=== PATIENT | female | born 1935 | race Caucasian/White ===

== ENCOUNTER 2018-07-14 06:24 | Day surgery (SDC) | payer OTHER ==
[2018-07-08 10:07] VITALS: BMI 26.5
[2018-07-14] MEDS ORDERED: LIDOCAINE HCL 2% (20ML MULTI-DOSE VIAL) NR ONE (07:14)
[2018-07-14] MEDS ORDERED: BUPIVACAINE HCL 0.25% 125 MG/50 ML VIAL ONE (07:29)
[2018-07-14] MEDS ORDERED: MIDAZOLAM HCL 2 MG/2 ML SINGLE DOSE VIAL ONE (07:40)
[2018-07-14] MEDS ORDERED: ROPIVACAINE HCL 0.5% 30ML VIAL ONE (07:40)
[2018-07-14] MEDS ORDERED: DEXAMETHASONE SOD PHOSPHATE/PF 10 MG/ML SDV ONE (07:40)
[2018-07-14] MEDS ORDERED: PROPOFOL 20 ML ONE (08:17)
[2018-07-14] MEDS ORDERED: SUCCINYLCHOLINE CHLORIDE 200 MG/10 ML VIAL ONE (08:19)
[2018-07-14] MEDS ORDERED: ceFAZolin SODIUM 1 GM VIAL ONE (08:21)
[2018-07-14 10:10] VITALS: TEMP 97.4
[2018-07-14 10:45] VITALS: BP 143/65
[2018-07-14 10:49] VITALS: PULSE 68
[2018-07-14] MEDS ORDERED: oxyCODONE HCL 5 MG TABLET PO PRN (11:06)
[2018-07-14] MEDS ORDERED: ONDANSETRON 4 MG/2 ML VIAL IVPUSH PRN (11:06)
[2018-07-14] MEDS ORDERED: LACTATED RINGERS SOLUTION 1,000 ML IV SCH (11:15)
--- NOTE | 2018-07-15 10:21 | OP ---
DATE OF OPERATION: 07/14/2018 PREOPERATIVE DIAGNOSIS: Status post left distal radius open reduction and internal fixation with current likely flexor digitorum profundus to index finger laceration. POSTOPERATIVE DIAGNOSES: 1. Left wrist flexor tenosynovitis. 2. Left wrist distal radius bony prominence. 3. Left flexor digitorum profundus to index finger partial rupture and fraying of other tendons. OPERATIVE PROCEDURES: 1. Left wrist radial flexor tenosynovectomy with excision of bony prominence in distal radius. 2. Debridement/partial excision of flexor digitorum profundus to index finger and debridement of other tendons to the flexor tendon sheath. SURGEON: Frederick Morris MD PUPPET MAKER: ADALBERTO Bond ANESTHESIA: Regional. COMPLICATIONS: None. ESTIMATED BLOOD LOSS: Minimal. INDICATION FOR PROCEDURE: The patient is an 82-year-old female who is status post distal radius ORIF in the past. She had collapse of the fracture and subsequent removal of hardware, and prior to the surgery, she developed an inability to flex the distal interphalangeal joint to the index finger. She was diagnosed with likely flexor tendon rupture and was indicated for operative treatment. Risks, benefits, and alternatives were discussed with the patient at length, and proper informed consent was obtained. PROCEDURE: After proper identification of patient and correct operative site, patient was brought to the operating room and placed supine on the operative table. All prominences were well padded. Regional anesthesia was given. Left upper extremity was prepped and draped in usual sterile fashion. A well-padded tourniquet was placed as well as a sterile prep. Esmarch bandage to exsanguinate the left upper extremity. Tourniquet was inflated to 250 mmHg. The patient's prior incision was used including both her carpal tunnel incision and her distal radius incision. Also of note, the patient stated that since the initial injury she had numbness of some of the fingers. The incisions were taken sharply through the skin, with blunt and sharp dissection through the subcutaneous tissues. Median nerve was identified and protected throughout the procedure. It was found to have some compression beneath the scar tissue of the prior surgical incision. It was decompressed in its entirety. The flexor tendon compartment was found to have significant flexor tenosynovitis with abundant synovial tissue. A complete tenosynovectomy of the wrist was performed. Significant fraying of the FDP to the index finger was noted. Approximately 50% of the flexor tendon remained, and the rest was damaged. This was debrided to healthy tissue, and it was determined at this point that no repair was necessary as about 50% of the tendon girth was left and this was functioning adequately. The FDS was found to be adherent as well, and this was freed with a tenolysis. Once this was completed, pulling on the tendons allowed full motion of the finger. Mild fraying of other tendons was noted, but all of the tendons were accounted for and intact. The base of the flexor compartment and carpal canal was evaluated, and there was a small rent in the soft tissue where a moderate-size bony spicule was noted. This was removed for a smooth surface. There were no other prominent areas. Mild metallosis was seen in the soft tissue here. This was debrided. Wound was irrigated. Hemostasis was achieved with bipolar electrocautery, and the wound was repaired in layers using 4-0 Vicryl and 5-0 nylon suture. Sterile dressings were applied. Patient was reversed from anesthesia and brought to Recovery in stable condition. Robin Cohen, the public health assistant, was integral throughout the procedure. Procedure could not have been performed without a skilled operative public health assistant. Cornelius [id number]
--- NOTE | 2018-07-16 15:37 | PATH ---
Surgical Pathology Report Patient Name: MATTHEW REINA [facility]. Rec. #: [id number] /Age/Gender: 1935 (Age: 82) / F Account: [id number] Location: [facility] Taken: 07/14/2018 Received: 07/14/2018 Reported: 07/16/2018 Physicians: Frederick Morris M.D. Specimen(s) Received FLEXOR TENOSYNOVIUM LEFT WRIST Clinical History Spontaneous rupture of flexor tendon left forearm Final Diagnosis FLEXOR OF TENOSYNOVIUM, LEFT WRIST, EXCISION: FIBROSYNOVIAL TISSUE WITH FIBROSIS AND DEGENERATIVE CHANGE. Electronically Signed Dulce Maria Huang M.D. Gross Description Received in formalin labeled "flexor tenosynovium left wrist," is a 2.4 x 2.0 x 0.3 cm aggregate of dudley osborn portions of soft tissue, consistent with tenosynovium. The specimen is submitted in toto in one cassette. 07/15/201807/15/2018
== END 2018-07-14 10:42 | disposition home or self-care (01) ==
LOC: FASU 06:24
PROVIDERS: ATTEND Orthopaedic Surgery Hand Surgery
PROC: 0LB60ZZ Excision of Left Lower Arm and Wrist Tendon, Open Approach (ICD-10-PCS; 2018-07-14)
PROC: 0LB60ZZ Excision of Left Lower Arm and Wrist Tendon, Open Approach (ICD-10-PCS; principal; 2018-07-14 08:27)
DX: M66.332 Spontaneous rupture of flexor tendons, left forearm (principal); M65.88 Other synovitis and tenosynovitis, other site; M89.8X8 Other specified disorders of bone, other site
CPT/HCPCS: 88304-TC

== ENCOUNTER 2019-09-08 12:56 | Inpatient (IN) | payer OTHER ==
--- NOTE | 2019-09-08 13:26 | PDOC ---
History of Present Illness - General Chief Complaint: Blood Pressure Problem Stated Complaint: BLOOD PRESSURE PROBLEM Time Seen by Provider: 09/08/19 13:07 Past History - Past Medical History Allergies/Adverse Reactions: Allergies Allergy/AdvReac Type Severity Reaction Status Date / Time morphine sulfate Allergy Verified 07/08/18 09:56 [From Duramorph (PF)] psyllium husk Allergy Verified 07/08/18 09:56 [From Metamucil] psyllium seed Allergy Verified 07/08/18 09:56 [From Metamucil] levofloxacin [From Levaquin] AdvReac Verified 07/08/18 09:56 Home Medications: Ambulatory Orders Amlodipine Besylate [Norvasc -] 10 mg PO DAILY 04/16/12 Levothyroxine [Synthroid -] 100 mcg PO DAILY 04/16/12 Rosuvastatin Calcium [Crestor] 20 mg PO HS 04/16/12 Fenofibric Acid [Trilipix -] 45 mg PO HS 04/19/12 [place]-3 Acid Ethyl Esters [Lovaza -] 1,000 mg PO DAILY 04/19/12 Zolpidem Tartrate 1 tab PO PRN PRN 05/12/14 Clopidogrel Bisulfate [Plavix -] 75 mg PO DAILY #0 tablet 05/15/14 Oxycodone HCl 10 mg PO PRN PRN 05/15/14 Furosemide [Lasix -] 20 mg PO ASDIR 05/02/16 Labetalol HCl [Normodyne -] 300 mg PO DAILY 05/02/16 Pantoprazole Sodium 40 mg PO DAILY 05/02/16 Gabapentin 600 mg PO TID 07/08/18 Anemia: Yes Asthma: No Cancer: No Cardiac Disorders: Yes (ASHD) CVA: No COPD: Yes CHF: No Dementia: No Diabetes: No GI Disorders: Yes (ESOPHAGEAL DYSMOTILITY,GERD,HIATAL HERNIA,COLON POLYPS, HEMORRHOIDS) Disorders: No HTN: Yes Hypercholesterolemia: Yes Liver Disease: No Seizures: No Thyroid Disease: Yes (HYPOTHYROID) - Surgical History Abdominal Surgery: No Appendectomy: No Cardiac Surgery: No Cholecystectomy: No Lung Surgery: No Neurologic Surgery: No Orthopedic Surgery: Yes (abhi TKR) - Psycho Social/Smoking Cessation Hx Smoking History: Unknown if ever smoked Have you smoked in the past 12 months: No Information on smoking cessation initiated: No Hx Alcohol Use: No Drug/Substance Use Hx: No Substance Use Type: None Hx Substance Use Treatment: No *Physical Exam - Vital Signs Last Vital Signs Temp Pulse Resp BP Pulse Ox 97.7 F 60 18 118/64 100 09/08/19 13:00 09/08/19 13:00 09/08/19 13:00 09/08/19 13:00 09/08/19 13:00 ED Treatment Course - LABORATORY CBC & Chemistry Diagram: 09/08/19 13:50 09/08/19 13:50 Medical Decision Making - Medical Decision Making 09/08/19 14:11 HPI: 84yo F hx HTN, HLD, COPD, diverticulosis and colon polyps, hx anemia (1x in 2018 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 Eating less but drinking water normally, last ate 5 days ago, BMs normal. Pt states the of her best friend brought this all about. Endorses sadness and difficulty sleeping, improved by Ambien. Denies depression, SI, HI, AVH. Pt also endorses increased stress 2/2 moving. 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 SPLICER APPRENTICE Yesika from [employer] is here today and took her to PCP's office. Pt normally ambulates without assistance but had to use cane today due to weakness. Pt denies syncope, lightheadedness, dizziness , vertigo, but SPLICER APPRENTICE states that at doctor's office today, pt was standing up and had a few second episode of not responding and becoming limp and her BP dropped from 130/70 to 70/30, and this happened 2x. Denies falling, sitting down, dropping cane, closing eyes, blacking out, convulsions or seizure-like movements , incontinence, tongue-biting, confusion, post-ictal state. EMS gave her 150cc NS and her BP was 120/66. Pt denies fever, chills, headache, dizziness, numbness /tingling, weakness, vision changes, shortness of breath, cough, chest pain, palpitations, leg swelling, abdominal pain, blood in stool, diarrhea, constipation, nausea, vomiting, dysuria, hematuria, confusion. PCP - [facility] - none Heme - none ROS: Constitutional: Positive for generalized weakness and fatigue and weight loss. Negative for chills, fever, night sweats, diaphoresis. HENT: Negative for sore throat, rhinorrhea, congestion. Eyes: Negative for visual disturbance. Respiratory: Negative for shortness of breath, cough, and wheezing. Cardiovascular: Negative for chest pain, palpitations, and leg swelling. Gastrointestinal: Positive for decreased appetite and PO intake. Negative for abdominal pain, blood in stool, constipation, diarrhea, nausea, and vomiting. Genitourinary: Negative for dysuria, flank pain, and hematuria. Musculoskeletal: Negative for myalgias, back pain, and neck pain. Skin: Negative for rash. Neurological: Negative for light-headedness, dizziness, vertigo, syncope, weakness, numbness and headaches. Psychiatric/Behavioral: Positive for sadness. Negative for behavioral problems and confusion. PE: Gen: Alert, NAD, comfortable-appearing. HEENT: PERRL, EOMI, dry MM, NCAT. No conjunctival pallor. Sclera are non- icteric. Oropharynx is clear. CV: Regular rate and rhythm. No murmurs, rubs, or gallops. PULM: No resp distress. CTAB, no wheezes, rales, or rhonchi. ABD: soft, NT/ND, no rebound tenderness or guarding, no CVA tenderness. BACK: No TTP of c/t/l-spine. No step-offs or deformities. MSK: No bony deformities. 2+ pulses in all extremities. NEURO: AAOx3. PERRL. CN 2-12 intact. 5/5 strength in all extremities. Sensation to light touch intact in all extremities. No pronator drift. No dysmetria. No dysdiadochokinesia. No abnormal nystagmus. Normal gait with 1-person assistance. EXTREMITIES: No cyanosis. No clubbing. No edema. No calf tenderness. PSYCH: Sad mood and normal thought pattern. No SI/HI/AVH. SKIN: Warm and dry. Normal capillary refill. No rashes. No jaundice. 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 Hemodynamically stable, afebrile, neurologically intact, benign abdomen. Ddx: depression, dehydration, anemia, orthostatic hypotension, vasovagal, infection, metabolic derangement, ACS/ID, arrhythmia, thyroid pathology, Takotsubo cardiomyopathy. Lack of neurologic deficits, focal neurologic complaints, or headache make SAH/ICH or stroke of very low concern. -EKG -CXR -CBC,CMP,Mg,Phos,Cardiac profile,TSH,Coags,T&S -If anemic, obtain FOBT -IVF -Dispo: pending workup and reassessment 09/08/19 14:33 CXR reviewed: possible hiatal hernia (known), no acute findings EKG reviewed: sinus rhythm with sinus arrhythmia with 1st degree AV block, 61bpm , XIANG 272ms, QTc 479ms, LAD, no e/o acute ischemia 09/08/19 15:30 Pt eating. Labs reviewed. TSH 16.3, WBC 11.4, H/H WNL, Na 133, trop neg -add on free T3/T4 CBC,CMP WBC 11.4 K/mm3 (4.0-10.0) H 09/08/19 13:50 RBC 3.79 M/mm3 (3.60-5.2) 09/08/19 13:50 Hgb 11.1 GM/dL (10.7-15.3) 09/08/19 13:50 Hct 33.5 % (32.4-45.2) 09/08/19 13:50 MCV 88.6 fl (80-96) 09/08/19 13:50 MCH 29.5 pg (25.7-33.7) 09/08/19 13:50 MCHC 33.3 g/dl (32.0-36.0) 09/08/19 13:50 RDW 15.9 % (11.6-15.6) H 09/08/19 13:50 Plt Count 215 K/MM3 (134-434) 09/08/19 13:50 MPV 8.3 fl (7.5-11.1) 09/08/19 13:50 Absolute Neuts (auto) 9.3 K/mm3 (1.5-8.0) H 09/08/19 13:50 Neutrophils % 81.8 % (42.8-82.8) 09/08/19 13:50 Lymphocytes % 7.6 % (8-40) L 09/08/19 13:50 Monocytes % 9.0 % (3.8-10.2) 09/08/19 13:50 Eosinophils % 1.2 % (0-4.5) 09/08/19 13:50 Basophils % 0.4 % (0-2.0) 09/08/19 13:50 Nucleated RBC % 0 % (0-0) 09/08/19 13:50 Sodium 133 mmol/L (136-145) L 09/08/19 13:50 Potassium 4.4 mmol/L (3.5-5.1) 09/08/19 13:50 Chloride 99 mmol/L (98-107) 09/08/19 13:50 Carbon Dioxide 23 mmol/L (21-32) 09/08/19 13:50 Anion Gap 11 MMOL/L (8-16) 09/08/19 13:50 BUN 49.8 mg/dL (7-18) H 09/08/19 13:50 Creatinine 2.4 mg/dL (0.55-1.3) H 09/08/19 13:50 Est GFR (CKD-EPI)AfAm 20.50 09/08/19 13:50 Est GFR (CKD-EPI)NonAf 17.69 09/08/19 13:50 Random Glucose 85 mg/dL (74-106) 09/08/19 13:50 Calcium 8.0 mg/dL (8.5-10.1) L 09/08/19 13:50 Phosphorus 5.2 mg/dL (2.5-4.9) H 09/08/19 13:50 Magnesium 1.8 mg/dL (1.8-2.4) 09/08/19 13:50 Total Bilirubin 0.6 mg/dL (0.2-1) 09/08/19 13:50 AST 23 U/L (15-37) 09/08/19 13:50 ALT 18 U/L (13-61) 09/08/19 13:50 Alkaline Phosphatase 55 U/L (45-117) 09/08/19 13:50 Creatine Kinase 41 U/L (26-192) 09/08/19 13:50 Troponin I < 0.02 ng/ml (0.00-0.05) 09/08/19 13:50 Total Protein 6.0 g/dl (6.4-8.2) L 09/08/19 13:50 Albumin 2.7 g/dl (3.4-5.0) L 09/08/19 13:50 Lipase 73 U/L (73-393) 09/08/19 13:50 TSH 16.30 uIU/ml (0.358-3.74) H 09/08/19 13:50 09/08/19 15:53 Pt accepted for admission by Dr Gonzales - signed out on phone. Discharge - Discharge Information Problems reviewed: Yes Clinical Impression/Diagnosis: Pre-syncope, Failure to thrive in adult, JUN (acute kidney injury) Condition: Stable - Admission Yes - Follow up/Referral - Patient Discharge Instructions - Post Discharge Activity
[2019-09-08] MEDS ORDERED: SODIUM CHLORIDE 0.9% 500 ML INFUS.BAG IV ONE ×2 (13:27→14:33)
[2019-09-08 14:23] LABS: BASO % 0.4 % (0-2.0); EOS % 1.2 % (0-4.5); HEMATOCRIT 33.5 % (32.4-45.2); HEMOGLOBIN 11.1 GM/dL (10.7-15.3); LYMPH % 7.6 % (8-40); MCH 29.5 pg (25.7-33.7); MCHC 33.3 g/dl (32.0-36.0); MEAN CELL VOLUME 88.6 fl (80-96); MEAN PLT VOLUME 8.3 fl (7.5-11.1); NEUT % 81.8 % (42.8-82.8); PLATELET COUNT 215 K/MM3 (134-434); RBC 3.79 M/mm3 (3.60-5.2); RDW 15.9 % (11.6-15.6); WHITE BLOOD COUNT 11.4 K/mm3 (4.0-10.0)
[2019-09-08 14:36] LABS: INR 1.01 (0.83-1.09); PROTHROMBIN TIME (PATIENT) 11.9 SEC (9.7-13.0)
[2019-09-08 14:39] LABS: ACTIVATED PTT 26.9 SECONDS (25.2-36.5)
[2019-09-08 15:16] LABS: ALBUMIN 2.7 g/dl (3.4-5.0); BILIRUBIN,TOTAL 0.6 mg/dL (0.2-1); BLOOD UREA NITROGEN 49.8 mg/dL (7-18); CREATININE 2.4 mg/dL (0.55-1.3); MAGNESIUM 1.8 mg/dL (1.8-2.4); PHOSPHOROUS 5.2 mg/dL (2.5-4.9); POTASSIUM 4.4 mmol/L (3.5-5.1)
--- NOTE | 2019-09-08 15:18 | PDOC ---
Documentation entered by Fred Cordero SCRIBE, acting as scribe for Monica Martínez DO. Monica Martínez DO: This documentation has been prepared by the Gil kebede Xhesika, SCRIBE, under my direction and personally reviewed by me in its entirety. I confirm that the documentation accurately reflects all work, treatment, procedures, and medical decision making performed by me. Attending Attestation - Resident Resident Name: Sophia Rossi - ED Attending Attestation I have performed the following: I have examined & evaluated the patient, The case was reviewed & discussed with the resident, I agree w/resident's findings & plan, Exceptions are as noted - HPI HPI: 09/08/19 14:40 The patient is a 84 year old female with a significant PMH of anemia, ASHD, COPD , HTN, HLD and hypothyroidism who presents to the emergency department for several weeks of decreased PO intake and weakness, worsened today. Per aide at bedside, the patient has been endorsing these symptoms after her best friend several weeks ago. Pt saw her PMD, Dr. Gonzales today, was hypotensive and was advised to come to the ED. Aide notes the patient has had an unsteady gait and has been walking with a walker. The patient denies chest pain, shortness of breath, headache and dizziness. Denies fever, chills, cough, nausea, vomiting, diarrhea and constipation. Denies dysuria, frequency, urgency and hematuria. Allergies: morphine sulfate, psyllium husk, psyllium seed, levofloxacin PCP: Dr. Gonzales - Physicial Exam PE: 09/08/19 14:42 GENERAL: Awake, alert, and fully oriented, in no acute distress HEAD: No signs of trauma EYES: PERRLA, EOMI, sclera anicteric, conjunctiva clear ENT: Auricles normal inspection, hearing grossly normal, nares patent, oropharynx clear without exudates. +dry mucosa NECK: Normal ROM, supple, no lymphadenopathy, JVD, or masses LUNGS: Breath sounds equal, clear to auscultation bilaterally. No wheezes, and no crackles HEART: Regular rate and rhythm, normal S1 and S2, no murmurs, rubs or gallops ABDOMEN: Soft, nontender, normoactive bowel sounds. No guarding, no rebound. No masses EXTREMITIES: Normal range of motion, no edema. No clubbing or cyanosis. No cords, erythema, or tenderness SKIN: +tenting skin. Warm, Dry. 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
[2019-09-08 18:32] VITALS: BMI 25.4
[2019-09-08 18:40] LABS: EPI CELLS 12.6 /HPF (0-5/HPF); HYALINE CASTS 41 /lpf (0-8); URINE APPEARANCE TURBID; URINE BILIRUBIN NEGATIVE (NEGATIVE); URINE COLOR YELLOW; URINE GLUCOSE (UA) NEGATIVE (NEGATIVE); URINE KETONE NEGATIVE (NEGATIVE); URINE LEUK ESTERASE 3+ (NEGATIVE); URINE NITRITE NEGATIVE (NEGATIVE); URINE PROTEIN 2+ (NEGATIVE); URINE UROBILINOGEN 0.2 mg/dL (0.2-1.0); URINE WBC 4811 /hpf (0-5)
[2019-09-08 19:58] LABS: URINE RBC 117.3 /hpf (0-4)
[2019-09-08] MEDS ORDERED: DEXTROSE 5%-0.45% SALINE 1,000 ML IV SCH (20:15)
[2019-09-08] MEDS ORDERED: FUROSEMIDE 40 MG TABLET (FP) PO SCH (20:15)
--- NOTE | 2019-09-08 20:20 | HP ---
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 Eating less but drinking water normally, last ate 5 days ago, BMs normal. Pt states the of her best friend brought this all about. Endorses sadness and difficulty sleeping, improved by Ambien. Denies depression, SI, HI, AVH. Pt also endorses increased stress 2/2 moving. 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 KITCHEN SUPERVISOR Yesika from [employer] is here today and took her to PCP's office. Pt normally ambulates without assistance but had to use cane today due to weakness. Pt denies syncope, lightheadedness, dizziness , vertigo, but KITCHEN SUPERVISOR states that at doctor's office today, pt was standing up and had a few second episode of not responding and becoming limp and her BP dropped from 130/70 to 70/30, and this happened 2x. Denies falling, sitting down, dropping cane, closing eyes, blacking out, convulsions or seizure-like movements , incontinence, tongue-biting, confusion, post-ictal state. EMS gave her 150cc NS and her BP was 120/66. Pt denies fever, chills, headache, dizziness, numbness /tingling, weakness, vision changes, shortness of breath, cough, chest pain, palpitations, leg swelling, abdominal pain, blood in stool, diarrhea, constipation, nausea, vomiting, dysuria, hematuria, confusion. 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 Cardiovascular: Yes: CAD, HTN Pulmonary: Yes: COPD Gastrointestinal: Yes: GERD ...: No - Past Surgical History Past Surgical History: Yes: CABG - Smoking History Smoking history: Former smoker Have you smoked in the past 12 months: No - Alcohol/Substance Use Hx Alcohol Use: No Home Medications - Allergies Allergies/Adverse Reactions: Allergies Allergy/AdvReac Type Severity Reaction Status Date / Time morphine sulfate Allergy Verified 07/08/18 09:56 [From Duramorph (PF)] psyllium husk Allergy Verified 07/08/18 09:56 [From Metamucil] psyllium seed Allergy Verified 07/08/18 09:56 [From Metamucil] levofloxacin [From Levaquin] AdvReac Verified 07/08/18 09:56 - Home Medications Home Medications: Ambulatory Orders Amlodipine Besylate [Norvasc -] 10 mg PO DAILY 04/16/12 Levothyroxine [Synthroid -] 100 mcg PO DAILY 04/16/12 Rosuvastatin Calcium [Crestor] 20 mg PO HS 04/16/12 Fenofibric Acid [Trilipix -] 45 mg PO HS 04/19/12 [place]-3 Acid Ethyl Esters [Lovaza -] 1,000 mg PO DAILY 04/19/12 Zolpidem Tartrate 1 tab PO PRN PRN 05/12/14 Clopidogrel Bisulfate [Plavix -] 75 mg PO DAILY #0 tablet 05/15/14 Oxycodone HCl 10 mg PO PRN PRN 05/15/14 Furosemide [Lasix -] 20 mg PO ASDIR 05/02/16 Labetalol HCl [Normodyne -] 300 mg PO DAILY 05/02/16 Pantoprazole Sodium 40 mg PO DAILY 05/02/16 Gabapentin 600 mg PO TID 07/08/18 Family Medical History Family History: Denies, Unremarkable Review of Systems Findings/Remarks: ROS: Constitutional: Positive for generalized weakness and fatigue and weight loss. Negative for chills, fever, night sweats, diaphoresis. HENT: Negative for sore throat, rhinorrhea, congestion. Eyes: Negative for visual disturbance. Respiratory: Negative for shortness of breath, cough, and wheezing. Cardiovascular: Negative for chest pain, palpitations, and leg swelling. Gastrointestinal: Positive for decreased appetite and PO intake. Negative for abdominal pain, blood in stool, constipation, diarrhea, nausea, and vomiting. Genitourinary: Negative for dysuria, flank pain, and hematuria. Musculoskeletal: Negative for myalgias, back pain, and neck pain. Skin: Negative for rash. Neurological: Negative for light-headedness, dizziness, vertigo, syncope, weakness, numbness and headaches. Psychiatric/Behavioral: Positive for sadness. Negative for behavioral problems and confusion. Physical Examination Vital Signs: Vital Signs Temperature 98.1 F 09/08/19 18:32 Pulse Rate 61 09/08/19 18:32 Respiratory Rate 18 09/08/19 18:32 Blood Pressure 126/61 09/08/19 18:32 O2 Sat by Pulse Oximetry (%) 100 09/08/19 18:32 Labs: CBC, BMP 09/08/19 13:50 09/08/19 13:50 Imaging - Results Chest X-ray: Report Reviewed Problem List - Problems (1) JUN (acute kidney injury) Code(s): N17.9 - ACUTE KIDNEY FAILURE, UNSPECIFIED (2) Failure to thrive in adult Code(s): R62.7 - ADULT FAILURE TO THRIVE (3) Pre-syncope Assessment/Plan: MDM: 84yo F hx HTN, HLD, COPD, diverticulosis and colon polyps, hx anemia (1x in 2018 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 Hemodynamically stable, afebrile, neurologically intact, benign abdomen. Ddx: depression, dehydration, anemia, orthostatic hypotension, vasovagal, infection, metabolic derangement, ACS/RI, arrhythmia, thyroid pathology, Takotsubo cardiomyopathy. Lack of neurologic deficits, focal neurologic complaints, or headache make SAH/ICH or stroke of very low concern. iv fluids repeat labs 09/08/19 14:33 CXR reviewed: possible hiatal hernia (known), no acute findings EKG reviewed: sinus rhythm with sinus arrhythmia with 1st degree AV block, 61bpm , XIANG 272ms, QTc 479ms, LAD, no e/o acute ischemia 09/08/19 15:30 Pt eating. Labs reviewed. TSH 16.3, WBC 11.4, H/H WNL, Na 133, trop neg -add on free T3/T4 CBC,CMP Code(s): R55 - SYNCOPE AND COLLAPSE
[2019-09-08] MEDS: GABAPENTIN 300 MG CAPSULE PO SCH (21:18)
[2019-09-08] MEDS: FENOFIBRIC ACID 45 MG CAP PO SCH ×2 (21:47→22:05)
[2019-09-08] MEDS ORDERED: ZOLPIDEM TARTRATE 5 MG TABLET PO PRN (22:00)
[2019-09-08] MEDS ORDERED: ACETAMINOPHEN 325 MG TABLET (FP) PO ONE (22:15)
[2019-09-08] MEDS ORDERED: oxyCODONE HCL 5 MG TABLET PO ONE (22:15)
[2019-09-09] MEDS: GABAPENTIN 300 MG CAPSULE PO SCH ×3 (06:23→21:22)
[2019-09-09] MEDS ORDERED: LEVOTHYROXINE NA 100 MCG TABLET (FP) PO SCH (07:00)
[2019-09-09 08:23] LABS: BASO % 0.2 % (0-2.0); EOS % 2.9 % (0-4.5); HEMATOCRIT 29.9 % (32.4-45.2); HEMOGLOBIN 10.2 GM/dL (10.7-15.3); LYMPH % 9.4 % (8-40); MCH 30.3 pg (25.7-33.7); MCHC 34.2 g/dl (32.0-36.0); MEAN CELL VOLUME 88.4 fl (80-96); MEAN PLT VOLUME 7.8 fl (7.5-11.1); MONO % 10.2 % (3.8-10.2); NEUT % 77.3 % (42.8-82.8); PLATELET COUNT 232 K/MM3 (134-434); RBC 3.38 M/mm3 (3.60-5.2); WHITE BLOOD COUNT 8.7 K/mm3 (4.0-10.0)
[2019-09-09 08:39] LABS: ALBUMIN 2.2 g/dl (3.4-5.0); BILIRUBIN,TOTAL 0.6 mg/dL (0.2-1); BLOOD UREA NITROGEN 50.4 mg/dL (7-18); CALCIUM 7.3 mg/dL (8.5-10.1); POTASSIUM 4.8 mmol/L (3.5-5.1); TOT PROT 5.2 g/dl (6.4-8.2)
--- NOTE | 2019-09-09 09:36 | PN ---
Progress Note (short form) - Note Progress Note: feeling better CBC, BMP 09/09/19 07:00 09/09/19 07:00 Abnormal Lab Results 09/08/19 09/08/19 09/08/19 13:50 13:50 13:50 WBC 11.4 H RBC Hgb Hct RDW 15.9 H Absolute Neuts (auto) 9.3 H Lymphocytes % 7.6 L Sodium 133 L Anion Gap BUN 49.8 H Creatinine 2.4 H Calcium 8.0 L Phosphorus 5.2 H Total Protein 6.0 L Albumin 2.7 L TSH 16.30 H Free T4 0.73 L Urine Protein Urine Blood Ur Leukocyte Esterase Antibody Screen Positive H 09/08/19 09/09/19 09/09/19 14:45 07:00 07:00 WBC RBC 3.38 L Hgb 10.2 L Hct 29.9 L RDW 16.0 H Absolute Neuts (auto) Lymphocytes % Sodium Anion Gap 5 L BUN 50.4 H Creatinine 2.0 H Calcium 7.3 L Phosphorus Total Protein 5.2 L Albumin 2.2 L TSH Free T4 Urine Protein 2+ H Urine Blood 2+ H Ur Leukocyte Esterase 3+ H Antibody Screen Vital Signs Period Temp Pulse Resp BP Sys/Adame Pulse Ox Last 24 Hr 97.4 F-98.1 F 60-66 17-18 106-126/46-64 98-100 s1s2 rrr lungs cta abd soft non tender no edema dry oral mucosa [id number] 84 yo ladyu battling depression lately due to loss admitted for symptomatic dehydration acute renal failure and uti hypothyroidism-not controlled cad htn esophageal dysmotility copd hold labetalol and lasix cont amlodipine iv fluids iv abx start remeron at night
[2019-09-09] MEDS ORDERED: amLODIPine BESYLATE 10 MG TABLET (FP) PO SCH (10:00)
[2019-09-09] MEDS ORDERED: LABETALOL HCL 200 MG TABLET (FP) PO SCH (10:00)
[2019-09-09] MEDS ORDERED: DEXTROSE 5%-WATER - 50 ML IVPB ONE (11:01)
[2019-09-09] MEDS ORDERED: cefTRIAXone SODIUM 1 GM VIAL ONE (11:01)
[2019-09-09] MEDS: CEFTRIAXONE 1 GM in DEXTROSE 5%-WATER - 50 ML IVPB SCH (11:04)
[2019-09-09] MEDS: CLOPIDOGREL BISULFATE 75 MG TABLET (FP) PO SCH (11:07)
[2019-09-09] MEDS: amLODIPine BESYLATE 10 MG TABLET (FP) PO SCH (11:07)
[2019-09-09] MEDS: PANTOPRAZOLE 40 MG TABLET PO SCH (11:07)
[2019-09-09] MEDS: TIOTROPIUM BROMIDE 2.5 MCG (SPIRIVA) RESPIMAT INHALER IH SCH (11:10)
[2019-09-09] MEDS: DEXTROSE 5%-0.45% SALINE 1,000 ML IV SCH ×2 (11:10→23:06)
--- NOTE | 2019-09-09 12:47 | CONSULT ---
Consult Consult Specialty:: Nephrology Reason for Consultation:: JUN - History of Present Illness Chief Complaint: hypotension and decreased po intake History of Present Illness: Pt is an 84 year old female with pmhx of htn, hld, copd, anemia, corkscrew esophagus, and hiatal hernia who presents with decreased PO intake and weakness. Hse has had about a 5 pound weight loss. She started feeling this way after the passing of a friend. She has not had much to eat for the last few weeks. She complains of insomnia as well. She was found to have a UTI. She does feel better today and did finish her meals. She was also found to be in acute renal failure. - History Source History Provided By: Patient, Medical Record - Past Medical History [employer]: Yes: TIA Cardio/Vascular: Yes: CAD, HTN Pulmonary: Yes: COPD Gastrointestinal: Yes: GERD ...: No - Past Surgical History Past Surgical History: Yes: CABG - Alcohol/Substance Use Hx Alcohol Use: No - Smoking History Smoking history: Former smoker Have you smoked in the past 12 months: No Home Medications - Allergies Allergies/Adverse Reactions: Allergies Allergy/AdvReac Type Severity Reaction Status Date / Time morphine sulfate Allergy Verified 07/08/18 09:56 [From Duramorph (PF)] psyllium husk Allergy Verified 07/08/18 09:56 [From Metamucil] psyllium seed Allergy Verified 07/08/18 09:56 [From Metamucil] levofloxacin [From Levaquin] AdvReac Verified 07/08/18 09:56 - Home Medications Home Medications: Ambulatory Orders Amlodipine Besylate [Norvasc -] 10 mg PO DAILY 04/16/12 Levothyroxine [Synthroid -] 100 mcg PO DAILY 04/16/12 Rosuvastatin Calcium [Crestor] 20 mg PO HS 04/16/12 Fenofibric Acid [Trilipix -] 45 mg PO HS 04/19/12 [place]-3 Acid Ethyl Esters [Lovaza -] 1,000 mg PO DAILY 04/19/12 Zolpidem Tartrate 1 tab PO PRN PRN 05/12/14 Clopidogrel Bisulfate [Plavix -] 75 mg PO DAILY #0 tablet 05/15/14 Oxycodone HCl 10 mg PO PRN PRN 05/15/14 Furosemide [Lasix -] 20 mg PO ASDIR 05/02/16 Labetalol HCl [Normodyne -] 300 mg PO DAILY 05/02/16 Pantoprazole Sodium 40 mg PO DAILY 05/02/16 Gabapentin 600 mg PO TID 07/08/18 Family Medical History Family History: Denies Review of Systems - Review of Systems Constitutional: reports: Malaise Eyes: reports: No Symptoms HENT: reports: No Symptoms Neck: reports: No Symptoms Cardiovascular: reports: No Symptoms Respiratory: reports: No Symptoms Gastrointestinal: reports: No Symptoms Genitourinary: reports: No Symptoms Musculoskeletal: reports: No Symptoms Integumentary: reports: No Symptoms Neurological: reports: No Symptoms Endocrine: reports: No Symptoms Hematology/Lymphatic: reports: No Symptoms Psychiatric: reports: Depression Physical Exam Vital Signs: Vital Signs Temperature 97.4 F L 09/09/19 06:31 Pulse Rate 66 09/09/19 06:31 Respiratory Rate 18 09/09/19 06:31 Blood Pressure 119/60 09/09/19 06:31 O2 Sat by Pulse Oximetry (%) 100 09/08/19 21:00 Constitutional: Yes: Calm Eyes: Yes: Conjunctiva Clear HENT: Yes: Atraumatic Cardiovascular: Yes: S1, S2 Respiratory: Yes: CTA Bilaterally Gastrointestinal: Yes: Soft Renal/: Yes: WNL Musculoskeletal: Yes: WNL Edema: No Neurological: Yes: Oriented Psychiatric: Yes: Oriented Labs: CBC, BMP 09/09/19 07:00 09/09/19 07:00 Imaging - Results Chest X-ray: Report Reviewed Problem List - Problems (1) UTI (urinary tract infection) Code(s): N39.0 - URINARY TRACT INFECTION, SITE NOT SPECIFIED (2) UTI (urinary tract infection) Code(s): N39.0 - URINARY TRACT INFECTION, SITE NOT SPECIFIED (3) JUN (acute kidney injury) Code(s): N17.9 - ACUTE KIDNEY FAILURE, UNSPECIFIED (4) Failure to thrive in adult Code(s): R62.7 - ADULT FAILURE TO THRIVE Assessment/Plan Current Medications Generic Name Dose Route Start Last Admin Trade Name Freq PRN Reason Stop Dose Admin Amlodipine Besylate 10 mg 09/09/19 10:00 09/09/19 11:07 Norvasc - PO 10 mg DAILY MYCHAL Administration Clopidogrel Bisulfate 75 mg 09/09/19 10:00 09/09/19 11:07 Plavix - PO 75 mg DAILY MYCHAL Administration Fenofibric Acid 45 mg 09/08/19 22:00 09/08/19 22:05 Trilipix - PO 45 mg HS MYCHAL Administration Gabapentin 600 mg 09/08/19 22:00 09/09/19 06:23 Neurontin - PO 600 mg TID MYCHAL Administration Ceftriaxone Sodium 1 gm/ 50 mls @ 100 mls/hr 09/09/19 10:00 09/09/19 11:04 Dextrose IVPB 100 mls/hr DAILY MYCHAL Administration Dextrose/Sodium Chloride 1,000 mls @ 75 mls/hr 09/09/19 09:34 09/09/19 11:10 D5-1/2ns - IV Not Given ASDIR MYCHAL Levothyroxine Sodium 112 mcg 09/09/19 09:39 Synthroid - PO 0700 MYCHAL Mirtazapine 7.5 mg 09/09/19 22:00 Remeron - PO HS MYCHAL Pantoprazole Sodium 40 mg 09/09/19 10:00 09/09/19 11:07 Protonix - PO 40 mg DAILY MYCHAL Administration Rosuvastatin Calcium 20 mg 09/08/19 22:00 Crestor - PO HS MYCHAL Fluticasone/Salmeterol 2 puff 09/09/19 10:00 Advair 100mcg/50mcg - IH BID MYCHAL Tiotropium [place] 2 puff 09/09/19 10:00 09/09/19 11:10 Spiriva Respimat IH Not Given DAILY MYCHAL Impression 1. JUN 2. UTI 3. depression 4. htn 5. copd 6. 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
--- NOTE | 2019-09-09 12:48 | EKG ---
Test Reason : Blood Pressure : / mmHG Vent. Rate : 061 BPM Atrial Rate : 061 BPM P-R Int : 272 ms QRS Dur : 108 ms QT Int : 476 ms P-R-T Axes : 000 -31 000 degrees QTc Int : 479 ms SINUS RHYTHM WITH SINUS ARRHYTHMIA WITH 1ST DEGREE A-V BLOCK LEFT AXIS DEVIATION MINIMAL VOLTAGE CRITERIA FOR LVH, MAY BE NORMAL VARIANT POSSIBLE ANTERIOR INFARCT , AGE UNDETERMINED ABNORMAL ECG WHEN COMPARED WITH ECG OF 11-JUN-2009 16:54, [place] INTERVAL HAS INCREASED QRS AXIS SHIFTED LEFT T WAVE INVERSION NOW EVIDENT IN INFERIOR LEADS NONSPECIFIC T WAVE ABNORMALITY NO LONGER EVIDENT IN LATERAL LEADS Confirmed by CHACORTA ROGERS MD ([id number]) on 09/09/2019 12:48:25 PM Referred By: Confirmed By:CHACORTA ROGERS MD
[2019-09-09] MEDS: SIMETHICONE 80 MG TAB.CHEW (FP) PO PRN ×2 (15:07→21:24)
[2019-09-09] MEDS: ACETAMINOPHEN 325 MG TABLET (FP) PO PRN (15:08)
[2019-09-09] MEDS ORDERED: PT OWN MED DRAWER 7, Y5N ONE (21:21)
[2019-09-09] MEDS: FENOFIBRIC ACID 45 MG CAP PO SCH (21:22)
[2019-09-09] MEDS: MIRTAZAPINE 15 MG TABLET (FP) PO SCH (21:22)
[2019-09-09] MEDS: BUDESONIDE/FORMETEROL FUMARATE 80/4.5 mcg INHALER IH SCH (21:27)
[2019-09-09] MEDS ORDERED: ZOLPIDEM TARTRATE 5 MG TABLET PO ONE (21:33)
[2019-09-09] MEDS ORDERED: oxyCODONE HCL 5 MG TABLET PO ONE (21:45)
[2019-09-09] MEDS ORDERED: ACETAMINOPHEN 325 MG TABLET (FP) PO ONE (21:45)
[2019-09-10] MEDS: LEVOTHYROXINE NA 112 MCG TABLET (FP) PO SCH (06:27)
[2019-09-10] MEDS: GABAPENTIN 300 MG CAPSULE PO SCH ×3 (06:27→21:54)
[2019-09-10 08:55] LABS: BASO % 0.4 % (0-2.0); EOS % 1.5 % (0-4.5); HEMATOCRIT 32.9 % (32.4-45.2); LYMPH % 8.1 % (8-40); MCH 29.5 pg (25.7-33.7); MCHC 33.4 g/dl (32.0-36.0); MEAN CELL VOLUME 88.4 fl (80-96); MEAN PLT VOLUME 7.6 fl (7.5-11.1); MONO % 10.5 % (3.8-10.2); NEUT % 79.5 % (42.8-82.8); PLATELET COUNT 308 K/MM3 (134-434); RBC 3.72 M/mm3 (3.60-5.2); RDW 15.9 % (11.6-15.6); WHITE BLOOD COUNT 11.7 K/mm3 (4.0-10.0)
[2019-09-10] MEDS ORDERED: DEXTROSE 5%-WATER - 50 ML IVPB ONE (09:07)
[2019-09-10] MEDS ORDERED: cefTRIAXone SODIUM 1 GM VIAL ONE (09:07)
[2019-09-10] MEDS: CEFTRIAXONE 1 GM in DEXTROSE 5%-WATER - 50 ML IVPB SCH (09:13)
[2019-09-10] MEDS: PANTOPRAZOLE 40 MG TABLET PO SCH (09:13)
[2019-09-10] MEDS: CLOPIDOGREL BISULFATE 75 MG TABLET (FP) PO SCH (09:13)
[2019-09-10] MEDS: TIOTROPIUM BROMIDE 2.5 MCG (SPIRIVA) RESPIMAT INHALER IH SCH (09:14)
[2019-09-10] MEDS: BUDESONIDE/FORMETEROL FUMARATE 80/4.5 mcg INHALER IH SCH ×2 (09:14→21:51)
[2019-09-10] MEDS: amLODIPine BESYLATE 10 MG TABLET (FP) PO SCH (09:14)
[2019-09-10] MEDS: DEXTROSE 5%-0.45% SALINE 1,000 ML IV SCH (09:14)
[2019-09-10 09:34] LABS: ALBUMIN 2.5 g/dl (3.4-5.0); BILIRUBIN,TOTAL 0.3 mg/dL (0.2-1); BLOOD UREA NITROGEN 32.8 mg/dL (7-18); CALCIUM 7.6 mg/dL (8.5-10.1); CREATININE 1.2 mg/dL (0.55-1.3); POTASSIUM 4.9 mmol/L (3.5-5.1)
[2019-09-10] MEDS: LABETALOL HCL 100 MG TABLET (FP) PO SCH ×2 (10:07→21:51)
--- NOTE | 2019-09-10 13:16 | PN ---
Progress Note (short form) - Note Progress Note: CBC, BMP 09/10/19 07:32 09/10/19 07:32 Microbiology 09/08/19 14:45 Urine - Urine Clean Catch Urine Culture - Preliminary Lactose Fermenting Neg Bacilli s1s2 rrr lungs cta abd soft non tender no edema dry oral mucosa [id number] 84 yo lady battling depression lately due to loss admitted for symptomatic dehydration acute renal failure and uti hypothyroidism-not controlled cad htn esophageal dysmotility copd resume labetalol for bp cont amlodipine iv fluids iv abx started remeron and increased levothyroxine dc planning tomorrow
--- NOTE | 2019-09-10 13:52 | PN ---
Progress Note (short form) - Note Progress Note: Renal follow up for JUN coverage for Dr. De La Torre Seen and examined at the bedside awake and alert offers no acute complaints on IVF making urine Vital Signs Temperature 97.5 F L 09/10/19 09:00 Pulse Rate 90 09/10/19 09:00 Respiratory Rate 18 09/10/19 09:00 Blood Pressure 162/78 09/10/19 09:00 O2 Sat by Pulse Oximetry (%) 97 09/10/19 09:00 Intake & Output 09/07/19 09/08/19 09/09/19 09/10/19 23:59 23:59 23:59 23:59 Intake Total 2900 1890 Balance 2900 1890 Weight 58.967 kg NAD awake and alert RRR CTA no LE edema CBC, BMP 09/10/19 07:32 09/10/19 07:32 Current Medications Acetaminophen (Tylenol -) 650 mg PO Q6H PRN PRN Reason: PAIN Last Admin: 09/09/19 15:08 Dose: 650 mg Amlodipine Besylate (Norvasc -) 10 mg PO DAILY [facility] Last Admin: 09/10/19 09:14 Dose: 10 mg Budesonide/Formoterol Fumarate (Symbicort 80/4.5mcg -) 2 puff IH BID [facility] Last Admin: 09/10/19 09:14 Dose: Not Given Clopidogrel Bisulfate (Plavix -) 75 mg PO DAILY [facility] Last Admin: 09/10/19 09:13 Dose: 75 mg Fenofibric Acid (Trilipix -) 45 mg PO HS [facility] Last Admin: 09/09/19 21:22 Dose: 45 mg Gabapentin (Neurontin -) 600 mg PO TID [facility] Last Admin: 09/10/19 13:12 Dose: 600 mg Ceftriaxone Sodium 1 gm/ (Dextrose) 50 mls @ 100 mls/hr IVPB DAILY [facility] Last Admin: 09/10/19 09:13 Dose: 100 mls/hr Dextrose/Sodium Chloride (D5-1/2ns -) 1,000 mls @ 75 mls/hr IV ASDIR [facility] Last Admin: 09/10/19 09:14 Dose: Not Given Labetalol HCl (Normodyne -) 300 mg PO BID [facility] Last Admin: 09/10/19 10:07 Dose: 300 mg Levothyroxine Sodium (Synthroid -) 112 mcg PO 0700 [facility] Last Admin: 09/10/19 06:27 Dose: 112 mcg Mirtazapine (Remeron -) 7.5 mg PO HS [facility] Last Admin: 09/09/19 21:22 Dose: 7.5 mg Pantoprazole Sodium (Protonix -) 40 mg PO DAILY [facility] Last Admin: 09/10/19 09:13 Dose: 40 mg Rosuvastatin Calcium (Crestor -) 20 mg PO HS [facility] Simethicone (Mylicon -) 80 mg PO QID PRN PRN Reason: GAS Last Admin: 09/09/19 21:24 Dose: 80 mg Tiotropium [place] (Spiriva Respimat) 2 puff IH DAILY [facility] Last Admin: 09/10/19 09:14 Dose: Not Given Impression 1. JUN 2. UTI 3. depression 4. htn 5. copd 6. hld Plan Renal function improved s/p IVF D/c IVF after additional 6-8 hours UA consistent with UTI Renal US showed cysts but no obstruction Continue Abx as per primary team Tan Matthew DO
[2019-09-10] MEDS: MIRTAZAPINE 15 MG TABLET (FP) PO SCH (21:55)
[2019-09-10] MEDS: FENOFIBRIC ACID 45 MG CAP PO SCH (21:57)
[2019-09-10] MEDS ORDERED: ROSUVASTATIN CA 20 MG TABLET (FP) PO SCH (22:00)
[2019-09-10] MEDS: ACETAMINOPHEN 325 MG TABLET (FP) PO PRN (22:04)
[2019-09-11] MEDS ORDERED: oxyCODONE HCL 5 MG TABLET PO ONE (00:06)
[2019-09-11] MEDS: GABAPENTIN 300 MG CAPSULE PO SCH (06:23)
[2019-09-11] MEDS: LEVOTHYROXINE NA 112 MCG TABLET (FP) PO SCH (06:23)
[2019-09-11] MEDS ORDERED: DEXTROSE 5%-WATER - 50 ML IVPB ONE (08:53)
[2019-09-11] MEDS ORDERED: cefTRIAXone SODIUM 1 GM VIAL ONE (08:53)
[2019-09-11] MEDS: amLODIPine BESYLATE 10 MG TABLET (FP) PO SCH (09:15)
[2019-09-11] MEDS: LABETALOL HCL 100 MG TABLET (FP) PO SCH (09:15)
[2019-09-11] MEDS: PANTOPRAZOLE 40 MG TABLET PO SCH (09:15)
[2019-09-11] MEDS: CEFTRIAXONE 1 GM in DEXTROSE 5%-WATER - 50 ML IVPB SCH (09:15)
[2019-09-11] MEDS: CLOPIDOGREL BISULFATE 75 MG TABLET (FP) PO SCH (09:15)
[2019-09-11] MEDS: TIOTROPIUM BROMIDE 2.5 MCG (SPIRIVA) RESPIMAT INHALER IH SCH (09:16)
[2019-09-11] MEDS: BUDESONIDE/FORMETEROL FUMARATE 80/4.5 mcg INHALER IH SCH (09:16)
[2019-09-11 09:20] VITALS: BP 130/60; PULSE 74; TEMP 98.2
[2019-09-11 09:21] LABS: BASO % 0.6 % (0-2.0); EOS % 3.8 % (0-4.5); HEMATOCRIT 29.9 % (32.4-45.2); LYMPH % 15.9 % (8-40); MCH 29.8 pg (25.7-33.7); MCHC 33.5 g/dl (32.0-36.0); MEAN CELL VOLUME 88.9 fl (80-96); MEAN PLT VOLUME 7.4 fl (7.5-11.1); NEUT % 66.7 % (42.8-82.8); PLATELET COUNT 295 K/MM3 (134-434); RBC 3.37 M/mm3 (3.60-5.2); WHITE BLOOD COUNT 7.9 K/mm3 (4.0-10.0)
--- NOTE | 2019-09-11 09:31 | DS ---
Physical Examination Vital Signs: Vital Signs Temperature 98.2 F 09/11/19 09:00 Pulse Rate 74 09/11/19 09:00 Respiratory Rate 18 09/11/19 09:00 Blood Pressure 130/60 09/11/19 09:00 O2 Sat by Pulse Oximetry (%) 97 09/10/19 21:00 Constitutional: Yes: Calm Eyes: Yes: EOM Intact HENT: Yes: Normocephalic Neck: Yes: Trachea Midline Cardiovascular: Yes: Regular Rate and Rhythm Respiratory: Yes: CTA Bilaterally Gastrointestinal: Yes: Normal Bowel Sounds, Soft Extremities: Yes: WNL Edema: No Peripheral Pulses WNL: Yes Integumentary: Yes: WNL Labs: CBC, BMP 09/11/19 07:55 Discharge Summary Problems reviewed: Yes Reason For Visit: ACUTE KIDNEY INJURY Current Active Problems JUN (acute kidney injury) (Acute) Failure to thrive in adult (Acute) Pre-syncope (Acute) UTI (urinary tract infection) (Acute) UTI (urinary tract infection) (Acute) Hospital Course: 84 yo lady battling depression lately due to loss of friend with poor oral intake admitted for symptomatic dehydration, acute renal failure and uti PMH of hypothyroidism-not controlled cad htn esophageal dysmotility copd improved with iv fluids urine shows ecoli-finish 10 days of abx started remeron for appetite and depression increased synthoid dose f/up n office in 1 week Condition: Stable - Instructions Referrals: Jerome Gonzales MD [Primary Care Provider] - Disposition: HOME - Home Medications Comprehensive Discharge Medication List: Ambulatory Orders Amlodipine Besylate [Norvasc -] 10 mg PO DAILY 04/16/12 Levothyroxine [Synthroid -] 100 mcg PO DAILY 04/16/12 Rosuvastatin Calcium [Crestor] 20 mg PO HS 04/16/12 Fenofibric Acid [Trilipix -] 45 mg PO HS 04/19/12 [place]-3 Acid Ethyl Esters [Lovaza -] 1,000 mg PO DAILY 04/19/12 Zolpidem Tartrate 1 tab PO PRN PRN 05/12/14 Clopidogrel Bisulfate [Plavix -] 75 mg PO DAILY #0 tablet 05/15/14 Oxycodone HCl 10 mg PO PRN PRN 05/15/14 Furosemide [Lasix -] 20 mg PO ASDIR 05/02/16 Labetalol HCl [Normodyne -] 300 mg PO DAILY 05/02/16 Pantoprazole Sodium 40 mg PO DAILY 05/02/16 Gabapentin 600 mg PO TID 07/08/18 Prescription Drug Monitoring Program (I-STOP) results: I-STOP reviewed and no issues identified
[2019-09-11 09:46] LABS: BILIRUBIN,TOTAL 0.2 mg/dL (0.2-1); BLOOD UREA NITROGEN 23.6 mg/dL (7-18); CALCIUM 7.4 mg/dL (8.5-10.1); CREATININE 0.9 mg/dL (0.55-1.3); POTASSIUM 4.4 mmol/L (3.5-5.1); TOT PROT 4.9 g/dl (6.4-8.2)
[2019-09-11] MEDS ORDERED: CEPHALEXIN MONOHYDRATE 500 MG CAPSULE (UD) PO SCH (10:00)
[2019-09-12] MEDS ORDERED: CEPHALEXIN MONOHYDRATE 500 MG CAPSULE (UD) PO SCH (10:00)
== END 2019-09-11 12:14 | disposition home or self-care (01) | DRG 683 ==
LOC: SUPCPDRO 12:56 → JER 12:56 → JERBED 15:52 → J6S 18:20
PROVIDERS: ADMIT Internal Medicine; ATTEND Internal Medicine
DX: N17.9 Acute kidney failure, unspecified (principal); N39.0 Urinary tract infection, site not specified; E86.0 Dehydration; R62.7 Adult failure to thrive; R63.4 Abnormal weight loss; F32.9 Major depressive disorder, single episode, unspecified; I25.10 Atherosclerotic heart disease of native coronary artery without angina pectoris; J44.9 Chronic obstructive pulmonary disease, unspecified; E03.9 Hypothyroidism, unspecified; Z95.1 Presence of aortocoronary bypass graft; E78.5 Hyperlipidemia, unspecified
CPT/HCPCS: 36415; 71045-TC-FY; 76775-TC; 80053; 81003; 82550; 83690; 83735; 84100; 84439; 84443; 84481; 84484; 85025; 85610; 85730; 86870; 86902; 87086; 87186; 93005; 93010; 97116-GP; 97162-GP; 99285-25